=== PATIENT | male | born 1945 | race Caucasian/White ===

== ENCOUNTER → 2021-03-09 | Outpatient (CLI) | payer MEDICARE ==
--- NOTE | 2021-03-09 13:26 | XR ---
EXAMINATION TYPE: XR chest 2V DATE OF EXAM: 03/09/2021 COMPARISON: NONE TECHNIQUE: PA and lateral views submitted. HISTORY: Cough FINDINGS: Heart is prominent there is left lower lobe infiltrate and small effusion. No pneumothorax. Right anum g clear. No overt failure. IMPRESSION: 1. Left lower lobe pneumonia and pleural effusion.
== END | disposition home or self-care (01) ==
LOC: RADXRWHC 13:05
PROVIDERS: ATTEND Family Medicine
DX: J18.1 Lobar pneumonia, unspecified organism (principal); J90 Pleural effusion, not elsewhere classified
CPT/HCPCS: 71046

== ENCOUNTER → 2021-03-21 | Outpatient (CLI) | payer MEDICARE ==
[2021-03-21 16:58] LABS: African American GFR (CKD) >90 (>60 ml/min/1.73 sqM); Blood Urea Nitrogen 16 mg/dL (9-20); Non-African American GFR(CKD) >90 (>60 ml/min/1.73 sqM)
--- NOTE | 2021-03-22 07:58 | CT ---
EXAMINATION TYPE: CT chest w con DATE OF EXAM: 03/21/2021 COMPARISON: None HISTORY: pneumonia, pleural effusion CT DLP: 643 mGycm Automated exposure control for dose reduction was used. CONTRAST: CT scan of the chest is performed with IV Contrast, patient injected with 100 mL of Isovue 300. FINDINGS: LUNGS: There is moderate left-sided pleural effusion some of which may be loculated. There is nodular pleural thickening identified left upper lobe medially. Neoplasm is not excluded. There is more conf luent density within the left lower lobe which may reflect underlying atelectasis and/or infiltrate h owever mass is not ruled out. Nodular pleural thickening continues within the left lower lobe and int o the posterior left costophrenic sulcus. MEDIASTINUM: There are no greater than 1 cm hilar or mediastinal lymph nodes. No pericardial effusi on is seen. Thoracic aorta is of normal caliber. The heart is not enlarged. UPPER ABDOMEN: No significant abnormality appreciated. OTHER: No additional significant abnormality is seen. IMPRESSION: 1. there is nodular pleural thickening noted as discussed above which may be reactive and related to prior pneumonia and/or pleural effusion however underlying neoplasm such as a mesothelioma is difficu lt to exclude. Pleural effusion noted which may in part be loculated. Left lower lobe atelectasis, in filtrate and/or mass.
== END | disposition home or self-care (01) ==
LOC: RADCTMAIN 15:53
PROVIDERS: ATTEND Family Medicine
DX: J18.9 Pneumonia, unspecified organism (principal); J90 Pleural effusion, not elsewhere classified; J98.11 Atelectasis
CPT/HCPCS: 82565; 84520; 71260; 36415; Q9967